=== PATIENT | male | born 1995 | race Caucasian/White ===

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

== ENCOUNTER 2017-12-03 22:52 | Emergency (ER) | payer OTHER ==
[~2017-12-03 22:52] MED LIST: ALL DAY ALLERGY10 MG PO; CYCLOBENZAPRINE10 M1 PO; IBUPROFEN800 M1 PO
[2017-12-03 22:58] VITALS: BP 134/74
--- NOTE | 2017-12-03 23:13 | ED UPPER/LOWER EXTREMITY COMPL ---
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 yes Onset: Abrupt Duration: hour(s): Timing: single episode today Severity: mild, moderate Pain/Injury Location: Right: Foot. Method of Injury: direct blow Modifying Factors: Improves With: rest. Associated Symptoms: abrasion, swelling HPI: 22 yo gentleman presents with right foot pain. He notes that he was moving furniture and a 35 pound weight fell on his right foot. He notes pain and swelling. He is able to ambulate He is otherwise well and has no other injuries. Past History Travel History Traveled to [place] past 21 day No Medical History Any Pertinent Medical History? see below for history Neurological: NONE EENT: NONE Cardiovascular: NONE Respiratory: NONE Gastrointestinal: NONE Hepatic: NONE Renal: NONE Musculoskeletal: NONE Psychiatric: NONE Endocrine: NONE Surgical History Surgical History: non-contributory Psychosocial History What is your primary language Syriac Tobacco Use: Quit >30 days ago Family History Hx Contributory? No Review of Systems Review of Systems Constitutional: Reports: no symptoms. EENTM: Reports: no symptoms. Respiratory: Reports: no symptoms. Cardiovascular: Reports: no symptoms. Gastrointestinal/Abdominal: Reports: no symptoms. Genitourinary: Reports: no symptoms. Musculoskeletal: Reports: no symptoms. Skin: Reports: no symptoms. Neurological/Psychological: Reports: no symptoms. Hematologic/Endocrine: Reports: no symptoms. Immunological: Reports: no symptoms. All Other Systems: Reviewed and Negative Physical Exam Physical Exam General Appearance: well developed/nourished, mild distress Head: atraumatic Eyes: Bilateral: normal appearance. Ears, Nose, Throat: normal pharynx, normal ENT inspection Neck: normal inspection Cardiovascular/Respiratory: no respiratory distress Foot Right: 3x3cm abrasion w/ mild swelling, diffuse tenderness on dorsal aspect of right foot. no deformity. light touch, ROM intact. Progress Differential Diagnosis: contusion, fracture, sprain, tendon injury Plan of Care: Current Medications Sig/Vanesa Start time Last Medication Dose Stop Time Status Admin Ibuprofen 800 MG ONCE ONE 12/03 2329 UNVr (Motrin) 12/03 2330 Diagnostic Imaging: Viewed by Me: Radiology Read. Discussed w/RAD: Radiology Read. Radiology Impression: PATIENT: ISABELLA GAY PRESENT AGE: 22 PATIENT ACCOUNT NO: [id number] : 97 LOCATION: [facility] ORDERING PHYSICIAN: Iglesia Thomas MD SERVICE DATE: 12/03/17 EXAM TYPE: RAD - XRY-FOOT COMPLETE, R EXAMINATION: XR FOOT, RIGHT CLINICAL INFORMATION: Sprain. Dropped weight on the foot. COMPARISON: None TECHNIQUE: AP, lateral, and oblique views of the right foot. FINDINGS: The bones and soft tissues are normal. No fracture. Alignment is anatomic. Joint spaces are maintained. IMPRESSION: Normal right foot. DICTATED BY: Danny Whitney MD DATE/TIME DICTATED: 12/03/172319 PRESS SETTER:JESSICA DATE/TIME TRANSCRIBED:12/03/172319 CONFIDENTIAL, DO NOT COPY WITHOUT APPROPRIATE AUTHORIZATION. <Electronically signed in Other Vendor System> SIGNED BY: Danny Whitney MD 12/03/172323 Departure Departure Disposition: HOME OR SELF CARE Condition: Stable Clinical Impression Primary Impression: Contusion Secondary Impressions: Abrasion Referrals: Ben VAZQUEZ,Neo Anne (PCP/Family) Departure Forms: Customer Survey General Discharge Information Prescriptions: Current Visit Scripts Ibuprofen 1 TAB PO TID PRN pain #30 TAB Comments discussed results at length... no fx... pt safe for discharge.
--- NOTE | 2017-12-03 23:24 | RADIOLOGY REPORT ---
EXAMINATION: XR FOOT, RIGHT CLINICAL INFORMATION: Sprain. Dropped weight on the foot. COMPARISON: None TECHNIQUE: AP, lateral, and oblique views of the right foot. FINDINGS: The bones and soft tissues are normal. No fracture. Alignment is anatomic. Joint spaces are maintained. IMPRESSION: Normal right foot.
[2017-12-03] MEDS ORDERED: IBUPROFEN800 M1 PO (23:26)
== END 2017-12-03 23:40 ==
LOC: ERH 22:52
DX: S90.31XA Contusion of right foot, initial encounter (principal); S90.811A Abrasion, right foot, initial encounter; W20.8XXA Other cause of strike by thrown, projected or falling object, initial encounter; Y93.89 Activity, other specified; Y92.9 Unspecified place or not applicable
CPT/HCPCS: 73630-RT

== ENCOUNTER 2017-12-07 06:44 | Emergency (ER) | payer OTHER ==
[~2017-12-07] VITALS: Ht 182.9 cm; Wt 95.3 kg
[2017-12-07 07:17] VITALS: BP 135/80
--- NOTE | 2017-12-07 08:12 | ED HEAD/FACIAL INJ COMPLAINT ---
History of Present Illness General Chief Complaint: Facial or Head Injury Stated Complaint: FELL DOWN STAIRS AND HIT HEAD ?LOC Source: patient, family, old records Exam Limitations: no limitations Vital Signs & Intake/Output Vital Signs & Intake/Output Vital Signs Date Time Temp Pulse Resp B/P B/P Pulse O2 O2 Flow FiO2 Mean Ox Delivery Rate 12/07 07 97.5 84 18 135/80 98 Room Air Allergies Coded Allergies: NO KNOWN ALLERGIES (11/27/16) Reconcile Medications Ibuprofen 800 MG TABLET 1 TAB PO TID PRN pain Triage Note: 22M FELL DOWN APPROX 7 CEMENT STEPS FORWARD ONTO HEAD 1 HOUR AGO. ARRIVES WITH NOTABLE ABRASION AND SWELLING TO RIGHT UPPER FOREHEAD. REPORTS LOC X5-10 SECONDS, HEADACHE, +N/-V. DENIES C-SPINE OR SPINAL BONY TENDERNESS ON PALPATION. DENIES PAIN TO ANY OTHER BODY PARTS. ABDOMEN SOFT, NON-RIGID. FOCAL NEUROS INTACT ON ARRIVAL, PERRLA. Triage 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 yes Onset: Just prior to arrival Severity: moderate Location: frontal Method of Injury: direct blow, fall Loss of Consciousness: brief (seconds) Associated Symptoms: nausea/vomiting HPI: Prior to admission patient stumbled and fell down 7 steps striking his head on the ground with transient loss of consciousness nausea. He complains of right frontal and scalp pain with abrasion. He denies fever chills vomiting diarrhea chest pain cough shortness breath headache dysuria rash change in or sensory function change in bowel bladder habit other injury. Past History Travel History Traveled to [place] past 21 day No Medical History Any Pertinent Medical History? none Neurological: NONE EENT: NONE Cardiovascular: NONE Respiratory: NONE Gastrointestinal: NONE Hepatic: NONE Renal: NONE Musculoskeletal: NONE Psychiatric: NONE Endocrine: NONE Surgical History Surgical History: non-contributory Psychosocial History What is your primary language Dutch Tobacco Use: Never used ETOH Use: denies use Illicit Drug Use: denies illicit drug use Family History Hx Contributory? No Review of Systems Review of Systems Constitutional: Reports: no symptoms. EENTM: Reports: no symptoms. Respiratory: Reports: no symptoms. Cardiovascular: Reports: no symptoms. GI: Reports: see HPI, nausea. Genitourinary: Reports: no symptoms. Musculoskeletal: Reports: no symptoms. Skin: Reports: no symptoms. Neurological/Psychological: Reports: see HPI. Hematologic/Endocrine: Reports: no symptoms. Immunologic/Allergic: Reports: no symptoms. All Other Systems: Reviewed and Negative Physical Exam Physical Exam General Appearance: well developed/nourished, alert, awake, anxious, mild distress Head: evidence of injury (scalp abrasion), contusions (Right frontal parietal), tenderness Eyes: Bilateral: PERRL, EOMI. Ears, Nose, Throat: normal pharynx, normal ENT inspection, hearing grossly normal Neck: normal inspection, supple Respiratory: normal breath sounds Cardiovascular: regular rate/rhythm Gastrointestinal: soft, non-tender Back: normal inspection Extremities: normal inspection, normal range of motion, no edema Psychiatric: awake, alert, oriented x 3 Cranial Nerves: normal hearing, normal speech, PERRL Coordination/Gait: normal finger to nose, normal gait Motor/Sensory: no motor/sensory deficits Reflexes: 2+: bicep (R), bicep (L). Skin: intact, normal color, warm/dry Lymphatic: no anterior cervical marlena Progress Differential Diagnosis: ICH, skull fracture Plan of Care: Orders Procedure Date/time Status CT HEAD WO IV CONTRAST 12/07 716 Active Diagnostic Imaging: Viewed by Me: CT Scan. Discussed w/RAD: CT Scan. Radiology Impression: Normal study. Departure Departure Time of Disposition: 834 Disposition: HOME OR SELF CARE Condition: Stable Clinical Impression Primary Impression: Minor head trauma Secondary Impressions: Concussion syndrome Referrals: Ben VAZQUEZ,Neo Anne (PCP/Family) Departure Forms: Customer Survey General Discharge Information RELEASE- WORK Prescriptions: Current Visit Scripts Ibuprofen 1 TAB PO Q6P PRN pain #30 TAB with food
--- NOTE | 2017-12-07 08:32 | CT SCAN REPORT ---
EXAMINATION: CT HEAD WITHOUT CONTRAST CLINICAL INFORMATION: Fall, trauma, loss of consciousness, nausea, swelling. COMPARISON: None TECHNIQUE: Contiguous axial imaging was performed from the skull base to vertex without intravenous administration of contrast. Additional 2-D coronal reformatted images are generated on the CT workstation and uploaded to PACS. DLP: 560 mGy-cm FINDINGS: There is no intracranial hemorrhage, hematoma, or extra-axial fluid collection. The ventricles are normal in size. There is no hydrocephalus, edema, or mass effect. The palomares-white matter differentiation appears symmetric. There is no visible acute territorial infarct or mass lesion. The calvarium appears intact. There is no pneumocephalus or orbital emphysema. The visualized sinuses and middle ears and mastoid air cells show no significant mucosal thickening. There are no air-fluid levels. IMPRESSION: Normal study.
[2017-12-07] MEDS ORDERED: IBUPROFEN600 M1 PO (08:36)
== END 2017-12-07 08:53 ==
LOC: ERH 06:44
DX: S09.90XA Unspecified injury of head, initial encounter (principal); S06.0X9A Concussion with loss of consciousness of unspecified duration, initial encounter; W10.9XXA Fall (on) (from) unspecified stairs and steps, initial encounter; Y92.9 Unspecified place or not applicable; Y93.9 Activity, unspecified